=== PATIENT | male | born 1980 | race Caucasian/White ===

== ENCOUNTER 2016-11-03 15:29 | Emergency (ER) | payer BC, OTHER ==
[~2016-11-03] VITALS: Ht 190.5 cm; Wt 108.9 kg
[2016-11-03 15:33] VITALS: BP 135/79; PULSE 65; RESP 16; TEMP 97; O2SAT 99
[2016-11-03] MEDS ORDERED: ACETAMINOPHEN 500 MG TABLET PO ONE (16:00)
[2016-11-03 16:47] VITALS: BP 132/72; PULSE 62; RESP 17; TEMP 97.9; O2SAT 99
== END 2016-11-03 16:47 | disposition home or self-care (01) ==
LOC: SED 15:29
DX: S02.2XXA Fracture of nasal bones, initial encounter for closed fracture (principal); Y04.0XXA Assault by unarmed brawl or fight, initial encounter; Y93.89 Activity, other specified; Y92.89 Other specified places as the place of occurrence of the external cause; Y99.8 Other external cause status
CPT/HCPCS: 70160-TC; 99283; 99284

== ENCOUNTER 2022-06-20 08:42 | Emergency (ER) | payer BC, OTHER ==
[~2022-06-20] VITALS: Ht 190.5 cm; Wt 106.6 kg
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
[2022-06-20 08:55] VITALS: BP_SYST 148
--- NOTE | 2022-06-20 09:10 | NUR ---
PLACED IN [place] [id number]. DR. ZULUAGA MADE AWARE. REPORT GIVEN TO NURSE KAR.
[2022-06-20] MEDS ORDERED: MORPHINE 4 MG INJ. 4 MG/ML VIAL IM ONE (09:15)
[2022-06-20] MEDS ORDERED: KETOROLAC TROMETHAMINE 60 MG/2 ML VIAL IM ONE (09:15)
[2022-06-20] MEDS ORDERED: MORPHINE 4 MG INJ. 4 MG/ML VIAL ONE (09:38)
[2022-06-20] MEDS ORDERED: DIPHTH,PERTUSS(ACELL),TET VAC 0.5 ML VIAL (Tdap) I.M. ONE (09:45)
[2022-06-20] MEDS ORDERED: BACITRACIN 1 GM OINT TP ONE (10:32)
--- NOTE | 2022-06-20 11:10 | NUR ---
Pt tolerated splint and wound cleansing well. thumb spica left hand, splint to pointer finger, post surgery shoe to left foot for immoblization.
[2022-06-20] MEDS ORDERED: IBUP-1971 PO (11:24)
--- NOTE | 2022-06-20 11:37 | NUR ---
Patient given written and verbal discharge instructions and verbalizes understanding. ER MD discussed with patient the results and treatment provided. Patient in stable condition. ID arm band removed. Opportunity for questions provided and answered. Medication side effect fact sheet provided.
[2022-06-20 11:38] VITALS: BP_SYST 126
== END 2022-06-20 11:37 | disposition home or self-care (01) ==
LOC: SED 08:42
DX: S63.283A Dislocation of proximal interphalangeal joint of left middle finger, initial encounter (principal); S92.512A Displaced fracture of proximal phalanx of left lesser toe(s), initial encounter for closed fracture; S62.512A Displaced fracture of proximal phalanx of left thumb, initial encounter for closed fracture; Z79.899 Other long term (current) drug therapy; V18.0XXA Pedal cycle driver injured in noncollision transport accident in nontraffic accident, initial encounter; Y93.89 Activity, other specified; Y92.89 Other specified places as the place of occurrence of the external cause; Y99.8 Other external cause status
CPT/HCPCS: 99284; 26770; 73130; 73630; 96372; 29125; J1885; J2270